=== PATIENT | male | born 2000 | race African-American/Black ===

== ENCOUNTER 2019-01-18 22:21 | Emergency (ER) | payer OTHER ==
[~2019-01-18] VITALS: Ht 188 cm; Wt 127.0 kg
[~2019-01-18 22:21] MED LIST: ZOFRAN ODT4 MG PO
[2019-01-18 22:48] LABS: HEMATOCRIT 48.5 % (42.0-52.0); HEMOGLOBIN 15.6 gm/dL (14.0-18.0); MCH 27.9 pg (26.0-34.0); MCHC 32.3 g/dL (28.0-37.0); MCV 86.5 fL (80.0-100.0); PLATELET COUNT 326 thou/uL (150-400); RBC 5.61 mil/uL (4.50-6.00); WBC 21.4 thou/uL (4.0-11.0)
[2019-01-18 23:00] LABS: CALCIUM 9.5 mg/dL (8.5-10.1); POTASSIUM 3.4 mmol/L (3.5-5.1)
[2019-01-18 23:07] LABS: ALBUMIN 4.6 g/dL (3.4-5.0); TOTAL BILIRUBIN 0.9 mg/dL (<0.1-1.0); TOTAL PROTEIN 8.6 g/dL (6.4-8.2)
[2019-01-18 23:24] LABS: ABSOLUTE NEUTROPHILS 15.2 thou/uL (1.4-8.2)
[2019-01-18 23:26] LABS: PLATELET ESTIMATE NORMAL
[2019-01-19] MEDS ORDERED: PEPCID40 MG PO (00:59)
[2019-01-19] MEDS ORDERED: BENTYL 20 MG TA20 M1 PO (00:59)
[2019-01-19] MEDS ORDERED: ONDANSETRON HCL4 M2 PO (00:59)
[2019-01-19 01:17] VITALS: BP 157/92
== END 2019-01-19 01:20 | disposition home or self-care (01) ==
LOC: ER 22:21
PROVIDERS: Emergency Medicine
DX: K21.9 Gastro-esophageal reflux disease without esophagitis (principal)

== ENCOUNTER 2019-04-04 09:50 | Emergency (ER) | payer OTHER ==
[~2019-04-04] VITALS: Ht 188 cm; Wt 127.0 kg
[~2019-04-04 09:50] MED LIST changes: +BENTYL 20 MG TA20 M1 PO; +ONDANSETRON HCL4 M2 PO; +PEPCID40 MG PO
[2019-04-04 10:38] LABS: URINE BILIRUBIN NEGATIVE (Negative); URINE BLOOD NEGATIVE (Negative); URINE CLARITY CLEAR; URINE COLOR YELLOW; URINE GLUCOSE-RANDOM* NEGATIVE (Negative); URINE KETONES NEGATIVE (Negative); URINE LEUKOCYTES-REFLEX NEGATIVE (Negative); URINE NITRITE-REFLEX NEGATIVE (Negative); URINE PROTEIN (DIPSTICK) 1+ (Negative)
[2019-04-04 10:39] LABS: ABSOLUTE NEUTROPHILS 15.4 thou/uL (1.4-8.2); BASOPHILS 0.4 % (0.0-2.0); EOSINOPHILS 0.4 % (0.0-3.0); HEMATOCRIT 48.2 % (42.0-52.0); HEMOGLOBIN 15.9 gm/dL (14.0-18.0); LYMPHOCYTES 10.9 % (24.0-44.0); MCH 28.6 pg (26.0-34.0); MCV 86.5 fL (80.0-100.0); MONOCYTES 4.8 % (1.0-8.0); PLATELET COUNT 326 thou/uL (150-400); POLYS 83.5 % (36.0-66.0); RBC 5.57 mil/uL (4.50-6.00); RDW 12.8 % (10.5-14.5); WBC 18.4 thou/uL (4.0-11.0)
[2019-04-04 10:42] LABS: ANION GAP 11 mmol/L (7-16); BUN 7 mg/dL (7-18); CALCIUM 9.7 mg/dL (8.5-10.1); CHLORIDE 100 mmol/L (98-107); CO2 25 mmol/L (21-32); CREATININE 0.9 mg/dL (0.7-1.3); GLUCOSE 125 mg/dL (74-106); POTASSIUM 3.8 mmol/L (3.5-5.1); SODIUM 136 mmol/L (136-145)
[2019-04-04 10:48] LABS: AMP/METHAMP Negative (Negative); BARBITURATES Negative (Negative); BENZODIAZEPINES Negative (Negative); COCAINE Negative (Negative); METHADONE Negative (Negative); OPIATES Negative (Negative); PCP Negative (Negative)
[2019-04-04 10:53] LABS: ALBUMIN 4.7 g/dL (3.4-5.0); MAGNESIUM 1.9 mg/dL (1.8-2.4); SGOT 18 U/L (15-37); SGPT 23 U/L (30-65); TOTAL BILIRUBIN 0.6 mg/dL (<0.1-1.0); TOTAL PROTEIN 8.8 g/dL (6.4-8.2); TROPONIN-I <0.06 ng/mL (<0.06)
[2019-04-04 10:56] LABS: BACTERIA-REFLEX 1-9 Few /HPF (None Seen); CASTS None Seen /LPF (None Seen); CRYSTALS None Seen /LPF (None Seen); SQUAMOUS None Seen /LPF (0-3); URINE RBC None Seen /HPF (0-2); URINE WBC-REFLEX 0-5 Rare /HPF (0-5)
[2019-04-04] MEDS ORDERED: ONDANSETRON ODT8 MG PO (11:52)
[2019-04-04 12:32] VITALS: BP 153/102
--- NOTE | 2019-04-04 13:26 | EKG ---
[facility] [employer] [place] [address] ELECTROCARDIOGRAM REPORT Name: WERNER RAMIREZ Room #: NANCY Montemayor#: [id number] Admission: 04/04/19 Attend Phys: Discharge: 04/04/19 Date of : [birth year] Report #: [id number] THIS REPORT FOR: //name// [facility] ED Test Date: 2019-04-04 Test Time: 11:23:34 Pat Name: WERNER RAMIREZ Department: Room: Gender: Art Specialist: HAIM : 2000 Requested By: Andrea Us Order Number: [id number] MD: Carlton Dewitt Measurements Intervals [place] Rate: 57 P: 39 IA: 151 QRS: 36 QRSD: 97 T: 33 QT: 386 QTc: 376 Interpretive Statements Sinus bradycardia RSR' in V1 or V2, probably normal variant No previous ECG available for comparison Electronically Signed On 04-04-2019 13:25:50 CDT by Carlton Dewitt [email or web address] <ELECTRONICALLY SIGNED> By: Carlton Dewitt MD, [facility] 04/04/19 1325 [id number] Carlton Dewitt MD, FACC /EPI
== END 2019-04-04 12:47 | disposition home or self-care (01) ==
LOC: ER 09:50
PROVIDERS: Emergency Medicine
DX: I49.3 Ventricular premature depolarization (principal); R42 Dizziness and giddiness; R11.2 Nausea with vomiting, unspecified; K21.9 Gastro-esophageal reflux disease without esophagitis; D72.829 Elevated white blood cell count, unspecified; Z79.899 Other long term (current) drug therapy; Z98.890 Other specified postprocedural states

== ENCOUNTER 2019-07-30 20:56 | Emergency (ER) | payer OTHER ==
[~2019-07-30] VITALS: Ht 182.9 cm; Wt 113.4 kg
[~2019-07-30 20:56] MED LIST changes: +ONDANSETRON ODT8 MG PO
[2019-07-30 22:31] LABS: ABSOLUTE NEUTROPHILS 14.9 thou/uL (1.4-8.2); BASOPHILS 0.3 % (0.0-2.0); HEMATOCRIT 46.6 % (42.0-52.0); HEMOGLOBIN 15.1 gm/dL (14.0-18.0); LYMPHOCYTES 6.8 % (24.0-44.0); MCH 28.4 pg (26.0-34.0); MCHC 32.4 g/dL (28.0-37.0); MCV 87.7 fL (80.0-100.0); MONOCYTES 2.3 % (1.0-8.0); PLATELET COUNT 295 thou/uL (150-400); POLYS 90.6 % (36.0-66.0); RBC 5.31 mil/uL (4.50-6.00); RDW 12.6 % (10.5-14.5); WBC 16.5 thou/uL (4.0-11.0)
[2019-07-30 22:33] LABS: URINE BILIRUBIN NEGATIVE (Negative); URINE BLOOD NEGATIVE (Negative); URINE CLARITY CLEAR; URINE COLOR YELLOW; URINE GLUCOSE-RANDOM* NEGATIVE (Negative); URINE KETONES 3+ (Negative); URINE LEUKOCYTES-REFLEX NEGATIVE (Negative); URINE NITRITE-REFLEX NEGATIVE (Negative); URINE PROTEIN (DIPSTICK) 1+ (Negative); URINE SPECIFIC GRAVITY 1.025 (1.005-1.035); URINE UROBILINOGEN 0.2 E.U./dl (0.2-1.0)
[2019-07-30 22:45] LABS: CALCIUM 9.6 mg/dL (8.5-10.1)
[2019-07-30 22:52] LABS: BACTERIA-REFLEX 1-9 Few /HPF (None Seen); CASTS None Seen /LPF (None Seen); CRYSTALS None Seen /LPF (None Seen); MUCUS >6 Heavy strn/LPF (None Seen); SQUAMOUS 0-3 Few /LPF (0-3); URINE RBC 0-2 Rare /HPF (0-2); URINE WBC-REFLEX 0-5 Rare /HPF (0-5)
[2019-07-31 00:39] VITALS: BP 119/80
[2019-07-31] MEDS ORDERED: PROTONIX40 MG PO (00:48)
[2019-07-31] MEDS ORDERED: ZOFRAN ODT4 MG PO (00:48)
== END 2019-07-31 01:15 | disposition home or self-care (01) ==
LOC: ER 20:56
PROVIDERS: Emergency Medicine
DX: R11.2 Nausea with vomiting, unspecified (principal); K21.9 Gastro-esophageal reflux disease without esophagitis; Z90.89 Acquired absence of other organs

== ENCOUNTER 2020-02-25 07:24 | Emergency (ER) | payer OTHER ==
[~2020-02-25] VITALS: Ht 182.9 cm; Wt 113.4 kg
[~2020-02-25 07:24] MED LIST changes: +PROTONIX40 MG PO
[2020-02-25] MEDS ORDERED: ZOFRAN ODT4 MG PO (08:11)
[2020-02-25 09:08] VITALS: BP 138/82
== END 2020-02-25 09:08 | disposition home or self-care (01) ==
LOC: ER 07:24
DX: R11.2 Nausea with vomiting, unspecified (principal); R19.7 Diarrhea, unspecified; K21.9 Gastro-esophageal reflux disease without esophagitis

== ENCOUNTER 2020-02-27 04:16 | Emergency (ER) | payer OTHER ==
[~2020-02-27] VITALS: Ht 182.9 cm; Wt 113.4 kg
[2020-02-27 04:17] VITALS: BP 142/84
[2020-02-27] MEDS ORDERED: BENTYL 20 MG TA20 M1 PO (04:34)
== END 2020-02-27 04:41 | disposition home or self-care (01) ==
LOC: ER 04:16
DX: K52.9 Noninfective gastroenteritis and colitis, unspecified (principal); K21.9 Gastro-esophageal reflux disease without esophagitis; Z79.899 Other long term (current) drug therapy